=== PATIENT | female | born 1950 | race African-American/Black ===

== ENCOUNTER 2019-03-22 13:38 | Emergency (ER) | payer BC, MEDICARE ==
[~2019-03-22] VITALS: Ht 167.6 cm; Wt 75.0 kg
[~2019-03-22 13:38] MED LIST: LEVO25TA7 PO
[2019-03-22] MEDS ORDERED: TETRACAINE 0.5% OPHTH DROPS 4ML RIGHTEYE ONE (15:30)
[2019-03-22] MEDS ORDERED: FLUORESCEIN SODIUM 1MG/STRIP RIGHTEYE ONE (15:30)
[2019-03-22 17:32] VITALS: BP 160/89
== END 2019-03-22 17:33 | disposition home or self-care (01) ==
LOC: ER 13:38
DX: H10.9 Unspecified conjunctivitis (principal); I10 Essential (primary) hypertension
CPT/HCPCS: 99283